=== PATIENT | female | born 1965 | race Caucasian/White ===

== ENCOUNTER → 2017-02-21 | Day surgery (SDC) | payer BC | LOC: MSO 08:35 | DX: Z12.11 Encounter for screening for malignant neoplasm of colon (principal); I10 Essential (primary) hypertension; G43.909 Migraine, unspecified, not intractable, without status migrainosus; E66.9 Obesity, unspecified | CPT/HCPCS: 00810; J3010; J7120 ==

== ENCOUNTER → 2020-04-17 | Outpatient (CLI) | payer BC | LOC: MAMMO 09:15 | DX: Z12.31 Encounter for screening mammogram for malignant neoplasm of breast (principal); N60.11 Diffuse cystic mastopathy of right breast ==

== ENCOUNTER → 2020-10-06 | Outpatient (CLI) | payer BC ==
[~2020-10-06] MED LIST: ADVIL 200MG TA200 MG PO; CEPHALEXIN500 M1 PO; CYCLOBENZAPRINE10 M1 PO; TYLENOL 8 HOUR650 M1 PO
== END ==
LOC: MAMMO 06:50
DX: N64.89 Other specified disorders of breast (principal)

== ENCOUNTER 2020-10-27 09:40 | Emergency (ER) | payer BC ==
[2020-10-27] MEDS ORDERED: ADVIL 200MG TA200 MG PO (09:59)
[2020-10-27] MEDS ORDERED: CYCLOBENZAPRINE10 M1 PO (09:59)
[2020-10-27] MEDS ORDERED: TYLENOL 8 HOUR650 M1 PO (09:59)
[2020-10-27 10:15] LABS: BASO # 0.02 (0.02-0.10); HEMATOCRIT 44.1 % (37.0-47.0); HEMOGLOBIN 15.2 g/dL (12.5-16.0); LYMPH# 1.45 (1.50-4.00); MEAN CELL VOLUME 87 fl (78-100); MEAN CORPUSCULAR HEMOGLOBIN 30 pg (27-31); MEAN CORPUSCULAR HGB CONC 35 g/dL (33-37); MEAN PLATELET VOLUME 9.6 fl (7.4-10.4); MONO # 0.41 (0.20-0.80); NEU # 7.23 (1.40-6.50); PLATELET COUNT 400 K/mm3 (130-400); RED CELL DISTRIBUTION WIDTH 12.3 % (11.5-14.5); WHITE BLOOD COUNT 9.1 K/mm3 (4.8-10.8)
[2020-10-27 10:22] LABS: ALBUMIN 4.5 g/dL (3.5-5.0)
[2020-10-27 10:23] LABS: CALCIUM 9.8 mg/dL (8.3-10.5)
[2020-10-27 10:25] LABS: TOTAL PROTEIN 7.6 g/dL (6.4-8.3)
[2020-10-27 10:26] LABS: TOTAL BILIRUBIN 0.5 mg/dL (0.2-1.2)
[2020-10-27 10:28] LABS: URINE APPEARANCE CLEAR; URINE COLOR YELLOW; URINE GLUCOSE NEGATIVE (NEGATIVE); URINE PROTEIN(semi-quant) TRACE mg/dL (NEGATIVE)
[2020-10-27 10:29] LABS: URINE BILIRUBIN NEGATIVE (NEGATIVE); URINE BLOOD NEGATIVE (NEGATIVE); URINE KETONE NEGATIVE (NEGATIVE); URINE LEUKOCYTE ESTERASE TRACE (NEGATIVE); URINE MUCUS PRESENT (NOT PRESENT); URINE NITRATE NEGATIVE (NEGATIVE); URINE UROBILINOGEN NORMAL (NORMAL)
[2020-10-27] MEDS ORDERED: CEPHALEXIN500 M1 PO (11:27)
[2020-10-27 12:20] VITALS: BP 144/82
== END 2020-10-27 12:21 | disposition home or self-care (01) ==
LOC: ED 09:40
PROVIDERS: Nurse Practitioner
DX: N39.0 Urinary tract infection, site not specified (principal)
CPT/HCPCS: J0696; J1885; J2550; J7030

== ENCOUNTER → 2021-04-15 | Outpatient (CLI) | payer BC | LOC: MAMMO 08:19 | DX: Z12.31 Encounter for screening mammogram for malignant neoplasm of breast (principal) ==

== ENCOUNTER 2021-11-12 18:31 | Observation (INO) | payer BC ==
[~2021-11-12] VITALS: Ht 177.8 cm; Wt 103.5 kg
[2021-11-12] MEDS ORDERED: VALACYCLOVIR1 GM PO (19:16)
[2021-11-12 19:22] LABS: BASO # 0.01 K/mm3 (0.02-0.10); HEMATOCRIT 43.3 % (37.0-47.0); HEMOGLOBIN 15.4 g/dL (12.5-16.0); LYMPH# 1.04 K/mm3 (1.50-4.00); MEAN CELL VOLUME 86 fl (78-100); MEAN CORPUSCULAR HEMOGLOBIN 31 pg (27-31); MEAN CORPUSCULAR HGB CONC 36 g/dL (33-37); MEAN PLATELET VOLUME 9.7 fl (7.4-10.4); MONO # 0.49 K/mm3 (0.20-0.80); PLATELET COUNT 267 K/mm3 (130-400); RED BLOOD COUNT 5.02 M/mm3 (4.10-5.30); RED CELL DISTRIBUTION WIDTH 11.7 % (11.5-14.5)
[2021-11-12 19:31] LABS: ALBUMIN 4.2 g/dL (3.5-5.0); POTASSIUM 3.3 mmol/L (3.5-5.1)
[2021-11-12 19:32] LABS: CALCIUM 9.3 mg/dL (8.3-10.5)
[2021-11-12 19:33] LABS: TOTAL PROTEIN 7.2 g/dL (6.4-8.3)
[2021-11-12 19:35] LABS: TOTAL BILIRUBIN 0.3 mg/dL (0.2-1.2)
[2021-11-12 20:37] LABS: PH-URINE 5.5 (5.0 - 8.0); URINE APPEARANCE CLEAR; URINE COLOR YELLOW
[2021-11-12 20:38] LABS: URINE BILIRUBIN NEGATIVE (NEGATIVE); URINE BLOOD NEGATIVE (NEGATIVE); URINE GLUCOSE NEGATIVE (NEGATIVE); URINE KETONE 2+ (NEGATIVE); URINE LEUKOCYTE ESTERASE 1+ (NEGATIVE); URINE MUCUS PRESENT (NOT PRESENT); URINE NITRATE NEGATIVE (NEGATIVE); URINE PROTEIN(semi-quant) NEGATIVE (NEGATIVE); URINE UROBILINOGEN NORMAL (NORMAL)
[2021-11-12] MEDS ORDERED: PREGABALIN25 MG PO (20:53)
[2021-11-12 22:54] VITALS: BP 133/70
[2021-11-13] MEDS ORDERED: DEMEROL PO (00:40)
[2021-11-13] MEDS ORDERED: PHENERGAN REC (00:42)
[2021-11-13 02:00] VITALS: BP 154/75
[2021-11-13 06:06] VITALS: BP 154/74
[2021-11-13 07:49] LABS: BASO # 0.01 K/mm3 (0.02-0.10); HEMATOCRIT 41.3 % (37.0-47.0); HEMOGLOBIN 14.3 g/dL (12.5-16.0); LYMPH# 1.01 K/mm3 (1.50-4.00); MEAN CELL VOLUME 88 fl (78-100); MEAN CORPUSCULAR HEMOGLOBIN 30 pg (27-31); MEAN CORPUSCULAR HGB CONC 35 g/dL (33-37); MEAN PLATELET VOLUME 9.5 fl (7.4-10.4); MONO # 0.49 K/mm3 (0.20-0.80); NEU # 1.49 K/mm3 (1.40-6.50); PLATELET COUNT 285 K/mm3 (130-400); RED CELL DISTRIBUTION WIDTH 11.8 % (11.5-14.5)
[2021-11-13 08:03] LABS: ALBUMIN 3.9 g/dL (3.5-5.0)
[2021-11-13 08:04] LABS: CALCIUM 8.8 mg/dL (8.3-10.5)
[2021-11-13 08:05] LABS: TOTAL PROTEIN 6.5 g/dL (6.4-8.3)
[2021-11-13 08:07] LABS: TOTAL BILIRUBIN 0.2 mg/dL (0.2-1.2)
[2021-11-13 10:15] VITALS: BP 153/90
[2021-11-13] MEDS ORDERED: COMPAZINE10 M2 PO (10:51)
== END 2021-11-13 11:24 | disposition home or self-care (01) ==
LOC: ED 18:31 → MED/SURG 21:26
PROVIDERS: ADMIT Physician Assistant
DX: U07.1 COVID-19 (principal); R11.2 Nausea with vomiting, unspecified; E86.0 Dehydration; Z28.311 Partially vaccinated for COVID-19; Z28.9 Immunization not carried out for unspecified reason; E87.1 Hypo-osmolality and hyponatremia; E87.6 Hypokalemia
CPT/HCPCS: G0378; J1630; J1650; J1885; J2765; J3480; J7030

== ENCOUNTER → 2023-06-01 | Outpatient (CLI) | payer BC ==
[~2023-06-01] MED LIST changes: +COMPAZINE10 M2 PO; +DEMEROL PO; +PHENERGAN REC; +PREGABALIN25 MG PO; +VALACYCLOVIR1 GM PO
== END ==
LOC: MAMMO 10:00
DX: Z12.31 Encounter for screening mammogram for malignant neoplasm of breast (principal)